=== PATIENT | male | born 1995 | race Caucasian/White ===

== ENCOUNTER 2019-06-14 14:35 | Emergency (ER) | payer OTHER ==
[2019-06-14 15:13] LABS: ABS Eosinophils 0.2 10^3/ul (0-0.6); ABS Lymphocytes 2.1 10^3/ul (1.0-4.8); ABS Monocytes 0.5 10^3/ul (0-0.8); ABS Neutrophils 2.7 10^3/ul (1.5-7.7); Eosinophil % 4.4 %; Hematocrit 37 % (42-52); Hemoglobin 12.9 g/dL (14.0-18.0); Lymphocyte % 37.6 %; Mean Corpuscular HGB Conc 35 g/dL (31-36); Mean Corpuscular Hemoglobin 30 pg (27-31); Mean Corpuscular Volume 86 fL (80-94); Mean Platelet Volume 6.5 fL (7.4-10.4); Platelet Count 284 10^3/uL (150-450); Red Blood Count 4.31 10^6 /uL (4.18-5.48); Red Cell Distribution Width 14 % (10-15); White Blood Count 5.6 10^3/uL (3.5-10.8)
[2019-06-14 15:17] LABS: INR 1.03 (0.82-1.09)
[2019-06-14 15:26] LABS: Albumin 4.5 g/dL (3.2-5.2); BUN/Creatinine Ratio 12.8 (8-20); Calcium 9.8 mg/dL (8.6-10.3); EGFR African American 146.7 (>60); EGFR Non-African American 121.3 (>60); Globulin 2.3 g/dL (2-4); Total Bilirubin 0.5 mg/dL (0.2-1.0); Total Protein 6.8 g/dL (6.4-8.9)
[2019-06-14] MEDS ORDERED: Iohexol 350* (CONTRAST) 500 ML MDV IV ONE (18:10)
--- NOTE | 2019-06-14 18:10 | ED ---
HPI Chest Pain - HPI Summary HPI Summary: A 24 y/o male presents to [facility] with a chief complaint of chest tightness for the past three days. He also reports intermittent SOB, chills and a shooting radiating pain to his arms. He says that he was told his heart was skipping beats. 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 When he had his DVT, he had arm swelling, he denies any current swelling. He last used IV drugs in March 2019. FHx of cardiac disease from mother. Denies exertional chest pain, dyspnea, syncope. - History of Current Complaint Chief Complaint: EDChestPainROMI Time Seen by Provider: 06/14/19 17:59 Hx Obtained From: Patient Onset/Duration: Started Days Ago, Still Present Timing: Intermittent Initial Severity: Mild Current Severity: Mild Pain Intensity: 1 Pain Scale Used: 0-10 Numeric Chest Pain Location: Diffuse Chest Pain Radiates: Yes Chest Pain Radiates To:: Arm Character: Heaviness, Tightness Aggravating Factor(s): Nothing Alleviating Factor(s): Nothing Associated Signs and Symptoms: Positive: Shortness of Breath, Chills. Negative : Swelling, Fever, Calf Pain/Swelling - Allergy/Home Medications Allergies/Adverse Reactions: Allergies Allergy/AdvReac Type Severity Reaction Status Date / Time No Known Allergies Allergy Verified 06/14/19 16:50 Home Medications: Home Medications NK [No Home Medications Reported] 06/14/19 [History Confirmed 06/14/19] PMH/Surg Hx/FS Hx/Imm Hx Cardiovascular History: Reports: Hx Deep Vein Thrombosis Sensory History: Denies: Hx Deafness EENT History: Denies: Hx Deafness Infectious Disease History: No Infectious Disease History: Denies: Traveled Outside the [place] in Last 30 Days - Family History Known Family History: Positive: Cardiac Disease - Social History Alcohol Use: None Substance Use Type: Reports: None Smoking Status (MU): Former Smoker Review of Systems Positive: Chills. Negative: Fever Positive: Palpitations - "skipping beats", Chest Pain Positive: Shortness Of Breath Negative: Edema All Other Systems Reviewed And Are Negative: Yes Physical Exam - Summary Physical Exam Summary: Constitutional: Well-developed, Well-nourished, Alert. (-) Distressed Skin: Warm, Dry HENT: Normocephalic; Atraumatic Eyes: Conjunctiva normal Neck: Musculoskeletal ROM normal neck. (-) JVD, (-) Stridor, (-) Nuchal rigidity Cardio: Rhythm regular, rate normal, Heart sounds normal; Intact distal pulses; Radial pulses are 2+ and symmetric. (-) Murmur Pulmonary/Chest wall: Effort normal. (-) Respiratory distress, (-) Wheezes, (-) Rales Abd: Soft, (-) tenderness, (-) Distension, (-) Guarding, (-) Rebound Musculoskeletal: (-) Edema Lymph: (-) Cervical adenopathy Neuro: Alert, Oriented x3 Psych: Mood and affect Normal Triage Information Reviewed: Yes Vital Signs On Initial Exam: Initial Vitals Temp Pulse Resp BP Pulse Ox 97.9 F 77 20 147/87 100 06/14/19 14:40 06/14/19 14:40 06/14/19 14:40 06/14/19 14:40 06/14/19 14:40 Vital Signs Reviewed: Yes Diagnostics - Vital Signs Vital Signs Temp Pulse Resp BP Pulse Ox 06/14/19 16:34 97.9 F 63 18 150/82 99 06/14/19 14:40 97.9 F 77 20 147/87 100 - Laboratory Lab Results: Lab Results 06/14/19 06/14/19 06/14/19 Range/Units 15:02 15:03 15:03 WBC 5.6 (3.5-10.8) 10^3/uL RBC 4.31 (4.18-5.48) 10^6 /uL Hgb 12.9 L (14.0-18.0) g/dL Hct 37 L (42-52) % MCV 86 (80-94) fL MCH 30 (27-31) pg MCHC 35 (31-36) g/dL RDW 14 (10-15) % Plt Count 284 (150-450) 10^3/uL MPV 6.5 L (7.4-10.4) fL Neut % (Auto) 49.3 % Lymph % (Auto) 37.6 % Bowie % (Auto) 8.4 % Eos % (Auto) 4.4 % Baso % (Auto) 0.3 % Absolute Neuts (auto) 2.7 (1.5-7.7) 10^3/ul Absolute Lymphs (auto) 2.1 (1.0-4.8) 10^3/ul Absolute Monos (auto) 0.5 (0-0.8) 10^3/ul Absolute Eos (auto) 0.2 (0-0.6) 10^3/ul Absolute Basos (auto) 0.0 (0-0.2) 10^3/ul Absolute Nucleated RBC 0.0 10^3/ul Nucleated RBC % 0.0 INR (Anticoag Therapy) 1.03 (0.82-1.09) Sodium 140 (135-145) mmol/L Potassium 4.0 (3.5-5.0) mmol/L Chloride 104 (101-111) mmol/L Carbon Dioxide 30 (22-32) mmol/L Anion Gap 6 (2-11) mmol/L BUN 10 (6-24) mg/dL Creatinine 0.78 (0.67-1.17) mg/dL Est GFR ( Amer) 146.7 (>60) Est GFR (Non-Af Amer) 121.3 (>60) BUN/Creatinine Ratio 12.8 (8-20) Glucose 109 H (70-100) mg/dL Calcium 9.8 (8.6-10.3) mg/dL Total Bilirubin 0.50 (0.2-1.0) mg/dL AST 22 (13-39) U/L ALT 19 (7-52) U/L Alkaline Phosphatase 63 (34-104) U/L Troponin I 0.00 (<0.04) ng/mL Total Protein 6.8 (6.4-8.9) g/dL Albumin 4.5 (3.2-5.2) g/dL Globulin 2.3 (2-4) g/dL Albumin/Globulin Ratio 2.0 (1-3) Result Diagrams: 06/14/19 15:03 06/14/19 15:02 Lab Statement: Any lab studies that have been ordered have been reviewed, and results considered in the medical decision making process. - CT Chest/thorax CTA CT Interpretation Completed By: Radiologist Summary of CT Findings: 1. No acute findings. No evidence of acute pulmonary embolus. 2. Tiny bilateral pulmonary nodules, most of which likely represent small. pulmonary lymph nodes with a tiny lingular calcified granuloma. Per Fleischner. Society Criteria, if the patient has no risk factors such as smoking or cancer,. no further workup is indicated. If they do have risk factors for cancer,. followup CT is suggested in one year to assess stability. . ED physician has reviewed this imaging report. - EKG 14:37 Cardiac Rate: NL - 86 bpm EKG Rhythm: Sinus Rhythm Summary of EKG Findings: An EKG at 14:37 reveals normal sinus rhythm at 86 bpm, nml axis, nml intervals. No STEMI. No acute changes. Chest Pain Course/Dx - Course Course Of Treatment: 24 y/o male presents chest pain. Chest Pain DDX: The patient is well appearing, with stable vitals. Given the patient's clinical presentation, highest on differential is PE vs atypical CP. History of DVT although possibly provoked, concern for PE. Check a CT chest. Although less likely, differential also includes the following: --Pneumothorax: Equal breath sounds, story inconsistent since gradual onset of symptoms. CXR shows no evidence of pneumothorax. Unlikely. --Mediastinitis or esophageal rupture: The history is not consistent, as the patient has had no recent history of significant wretching, instrumentation, or mediastinal surgeries. Unlikely. -- Aortic dissection: The patient does not describe the classical tearing chest pain radiating into the back, and the CXR does not show mediastinal widening or other signs of aortic dissection. Unlikely. --ACS: The initial EKG shows no ischemic changes. The initial troponin is not elevated. - Diagnoses Provider Diagnoses: Chest pain Discharge - Sign-Out/Discharge Documenting (check all that apply): Patient Departure - DC Patient Received Moderate/Deep Sedation with Procedure: No - Discharge Plan Condition: Stable Disposition: HOME Patient Education Materials: Chest Pain (ED) Referrals: Milady Grady NP [Primary Care Provider] - Additional Instructions: Seen in the emergency department for chest pain. Your heart number was normal. Your EKG was normal. Your CT scan did not show any evidence of blood clots. Follow up w your primary care provider in 2- 3 days and return for worsening pain, trouble breathing, or if you are concerned - Billing Disposition and Condition Condition: STABLE Disposition: Home - Attestation Statements Document Initiated by Scribe: Yes Documenting Scribe: Oswaldo Dodd Provider For Whom Scribe is Documenting (Include Credential): Celia Hou MD Scribe Attestation: I, Oswaldo Dodd, scribed for Celia Hou MD on 06/14/19 at 2156. Scribe Documentation Reviewed: Yes Provider Attestation: The documentation as recorded by the scribe, Oswaldo Dodd accurately reflects the service I personally performed and the decisions made by me, Celia Hou MD Status of Scribe Document: Viewed
[2019-06-14 20:48] VITALS: BP 0/0
== END 2019-06-14 20:47 | disposition home or self-care (01) ==
LOC: ED 14:35
DX: R07.9 Chest pain, unspecified (principal); R91.8 Other nonspecific abnormal finding of lung field; Z87.891 Personal history of nicotine dependence; Z86.718 Personal history of other venous thrombosis and embolism
CPT/HCPCS: 36415; 71275; 80053; 84484; 85025; 85610; 93005; 99283; Q9967